=== PATIENT | female | born 1985 | race Two or more races ===

== ENCOUNTER 2020-07-10 10:42 | Outpatient (REF) | payer MEDICAID, SELFPAY ==
--- NOTE | ~2020-07-10 | CT_ITS ---
EXAMINATION: CT CHEST WITHOUT CONTRAST CLINICAL INFORMATION: Pulmonary nodule COMPARISON: Previous chest x-ray September 2017 TECHNIQUE: Multidetector volumetric CT imaging of the chest was done. Axial MIP volume rendering provided. Sagittal and coronal reformatted images were obtained. This CT examination was performed using dose optimization techniques as appropriate, variously including the following: *Automated exposure control *Adjustment of mA and/or kV according to patient size (this includes techniques or standardized protocols for targeted exams where dose is matched to indication/reason for exam; i.e. extremities or head) *Use of iterative reconstruction technique DLP: 151 mGy-cm FINDINGS: CORE MANAGER: LUNGS: There are multiple small bilateral pulmonary nodules. The largest pulmonary nodule measures 4 mm in the peripheral left lower lobe axial image 481 series 8. MEDIASTINUM: The visualized thyroid gland appears enlarged. The mediastinum is otherwise normal. PLEURA: There is no pleural effusion. No pleural mass or thickening. AXILLA: No lymphadenopathy. UPPER ABDOMEN: The gallbladder has been removed. OSSEOUS STRUCTURES: Unremarkable. CT/CT chest wo con IMPRESSION: Small pulmonary nodules, largest measuring 4 mm in the left lower lobe. According to the UPDATED 2017 Fleischner Society recommendations, the advised follow-up imaging for less than 6 mm nodule on: Low risk, no chest CT follow-up needed and high risk, optional chest CT follow-up in one year. Prominent thyroid gland.
== END 2020-07-10 10:43 | disposition home or self-care (01) ==
LOC: HO.CT 10:42
PROVIDERS: Visit Provider Internal Medicine
DX: R91.1 Solitary pulmonary nodule (principal); F17.200 Nicotine dependence, unspecified, uncomplicated
CPT/HCPCS: 71250

== ENCOUNTER 2020-07-15 12:45 | Outpatient (REF) | payer MEDICAID, SELFPAY ==
--- NOTE | ~2020-07-15 | MM_ITS ---
EXAMINATION: MM DIAGNOSTIC DIGITAL BREAST TOMOSYNTHESIS, BILATERAL US DIAGNOSTIC ULTRASOUND BREAST, RIGHT CLINICAL INFORMATION: Chronic intermittent pain and palpable fullness mid upper outer right breast with some axillary tenderness noted by patient. Age 35. Family history breast cancer paternal grandmother and aunt. The lifetime risk of breast cancer based on the Tyrer-Cuzick Model is 15%. COMPARISON: Mammography: 11/22/2017 (baseline), targeted right breast ultrasound 11/22/2017 TECHNIQUE: Digital breast tomosynthesis is performed in both the craniocaudal and mediolateral oblique views along with computer-aided detection (CAD). Synthesized 2D images are generated from the tomosynthesis. Ultrasound right breast is targeted to the areas of clinical concern upper outer quadrant and axilla. Patient is able to point to area of concern at time of imaging. Grayscale imaging and color Doppler are performed without and with harmonics. FINDINGS: There are scattered areas of fibroglandular density (ACR BI-RADS breast composition Category b). Breast tissue composition borders on heterogeneously dense. There is no interval mass or parenchymal asymmetry, asymmetric density, or architectural abnormality. No abnormal calcifications. The axilla and skin contours are unremarkable. Ultrasound right breast demonstrates no cystic or solid mass, architectural abnormality, or focal duct ectasia. No skin thickening or edema tracking in soft tissue plane. Additional imaging right axilla shows no lymphadenopathy. Results are discussed with the patient at time of visit. MM/MM tomosynthesis diagnostic BI IMPRESSION: 1. No mammographic evidence of malignancy or inflammatory changes. 2. Unremarkable targeted right breast ultrasound. ASSESSMENT: BI-RADS 1: Negative RECOMMENDATION: 1. Patient should be managed based on the clinical impression. If clinically indicated, further evaluation may be considered with surgical consult. Decision to proceed with biopsy should be based on clinical grounds and degree of clinical concern. 2. Otherwise, routine annual screening mammography, beginning age 40, or earlier as clinical risk factors warrant. This patient's information was entered into a reminder system with a target due date for their next mammogram.
== END 2020-07-15 12:46 | disposition home or self-care (01) ==
LOC: HO.MAMMO 12:45
PROVIDERS: Visit Provider Internal Medicine
DX: N63.31 Unspecified lump in axillary tail of the right breast (principal)
CPT/HCPCS: 76642; 77062; 77066

== ENCOUNTER 2021-04-05 09:46 | Outpatient (REF) | payer MEDICAID, SELFPAY ==
--- NOTE | ~2021-04-05 | US_ITS ---
EXAMINATION: US THYROID CLINICAL INFORMATION: Nontoxic goiter. COMPARISON: None TECHNIQUE: Linear transducer grayscale and color Doppler examination with attention to the region of the thyroid. FINDINGS: SIZE: Measurements of the thyroid lobes and nodules are given in sagittal, anteroposterior and transverse dimensions respectively. Right Thyroid Lobe: 5.9 x 2.0 x 2.5 cm, volume 17.0 mL. Parenchyma: The gland echotexture is heterogeneous. Thyroid vascularity is increased. Left Thyroid Lobe: 5.9 x 1.9 x 2.8 cm, volume 16.4 mL. Parenchyma: The gland echotexture is heterogeneous. Thyroid vascularity is increased. Isthmus: 0.4 cm in maximum AP dimension. There are multiple bilateral colloid cysts. These are nonmeasured. Estimated total number of solid nodules greater than or equal to 1 cm: 0. 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 Location: Right inferior. Size: 0.7 x 0.5 x 0.7 cm, volume 0.1 mL. Nodule characteristics: Composition: Solid (2). Echogenicity: Hypoechoic (2). Shape: Not taller than wide (0). Margins: Smooth (0). Echogenic Foci: None (0). ACR TI-RADS total points: 4 ACR TI-RADS category: 4 NODES: No lymphadenopathy is seen in the tissue surrounding the thyroid gland. US/US thyroid IMPRESSION: Enlarged slightly heterogeneous hypervascular thyroid gland. Solitary solid subcentimeter right thyroid nodule. Multiple bilateral colloid cysts. ACR TI-RADS RECOMMENDATION REFERENCE: Ultrasound-guided fine-needle aspiration, followup ultrasound, no further follow up. * TR1 (0 point) and TR 2 (2 points): No FNA or follow up * TR3 (3 points): FNA if more than or equal to 2.5 cm in maximum dimension, followup ultrasound in 1, 3 and 5 years if 1.5 to 2.4 cm in maximum dimension. * TR4 (4-6 points): FNA if more than or equal to 1.5 cm in maximum dimension, followup ultrasound in 1, 2, 3 and 5 years if 1 to 1.4 cm in maximum dimension. * TR5 (more than or equal to 7 points): FNA if more than or equal to 1 cm in maximum dimension, followup ultrasound every year for 5 years if 0.5 to 0.9 cm in maximum dimension. * TR3, TR4 or TR5 nodules that are below the size threshold for follow up receive no follow up.
== END 2021-04-05 09:47 | disposition home or self-care (01) ==
LOC: HO.US 09:46
PROVIDERS: PCP Internal Medicine; Visit Provider Internal Medicine
DX: E04.9 Nontoxic goiter, unspecified (principal); E05.90 Thyrotoxicosis, unspecified without thyrotoxic crisis or storm
CPT/HCPCS: 76536

== ENCOUNTER 2022-09-05 12:54 | Outpatient (AMB) | payer MEDICAID, SELFPAY ==
--- NOTE | 2022-09-05 12:56 | A.OFFVIS_ITS ---
Intake Vital Signs 09/05/22 12:58 Height 5 ft 5 in Weight 147 lb 7.828 oz BMI 24.5 BP 118/62 Blood Pressure Location Lt brachial Position Sitting Pulse 81 Pulse Source Pulse Oximeter Pulse Oximetry (%) 96 Oxygen Delivery Method Room Air Intake Visit Reasons: Hypothyroidism/Nodule Intake Note: New patient present today for Hypothyroidism/ Nodule. 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 Was initially diagnosed with thyroid nodule in 04/05/21] with thyroid US revealing 1. Location: Right inferior. ?? ? Size: 0.7 x 0.5 x 0.7 cm, volume 0.1 mL. ?? ? Nodule characteristics: ?? ? Composition: Solid (2).. At age 14 had abnl thyroid Currently c/o dysphagia or + hoarseness of voice. Denies sensation of swelling in the neck or difficulty breathing while lying flat. Denies any tenderness in the neck. Admits to palpitations, tremors, + weight loss 80 lbs in 6 mos ,+ frequent bowel movements. Denies any ocular complaints, blurred or double vision. Has hair loss, +dry skin,+ heat but not cold intolerance, weight gain, confusion. Denies any history of head or neck irradiation. Denies any family history of thyroid cancer. Hx of hypothyroidism in counsins Not Had biopsy of nodules in the past. Biotin : No LMP 11/2 wks ago, are nl. Thyroid US: Labs: [facility] Surgical History (Updated 09/05/22 @ 13:05 by Marilia Trejo CMA) Hx of cholecystectomy Hx of tubal ligation Family History (Updated 09/05/22 @ 13:06 by Marilia Trejo CMA) Paternal Aunt Stomach cancer Maternal Aunt Brain cancer Breast cancer Paternal Grandmother Breast cancer Social History Alcohol intake: current Alcohol intake frequency: holidays/special occasions only Patient Tobacco Use Status: Former Tobacco user Quit Date: August 2022 Physical Exam Vital Signs: Last Vital Signs Pulse 81 09/05/22 12:58 BP 118/62 09/05/22 12:58 Pulse Ox 96 09/05/22 12:58 Oxygen Delivery Method Room Air 09/05/22 12:58 BMI result Body Mass Index 24.5 HEENT reveals absence of lid lag , stare or proptosis or eyebrow loss. Thyroid gland measure 15 gms . No nodules or tenderness palpated. There is no cervical adenopathy palpated. Lungs CTA. Heart S1, S2 Reg R/R -M/R/G. Abdominal exam benign. Skin exam reveals absence of dryness or thyroid dermopathy or vitiligo. Nail exam reveals absence of thyroid acropachy or oncholysis. Neurologic exam reveals 2+ reflexes . Muscle Strength is 5/5 proximally. There are no tremors in upper extremities. Assessment & Plan Assessment & Plan (1) Thyroid nodule: Code(s): E04.1 - Nontoxic single thyroid nodule Plan: This is a 37-year-old female with a history of subcentimeter thyroid nodule with mildly suppressed TSH level. Plan is to recheck TSH and free T4. Assuming above is normal, there is no need for FNA of the nodule and patient can follow up with primary care provider possible repeat thyroid ultrasound in 1-2 years time by patient's primary care provider. Should the nodule increase in size or change characteristics, patient referred back to [place] Orders: Orders Free T4 (Free Thyroxine) Today E04.1 - Nontoxic single thyroid nodule Thyroid Stimulating Hormone Today E04.1 - Nontoxic single thyroid nodule Coding Level of Care Code New Pt Level 4 (36107) Diagnoses Thyroid nodule E04.1
[2022-09-05 12:58] VITALS: BP 118/62; PULSE 81; O2SAT 96; BMI 24.5
== END 2022-09-06 16:52 | disposition home or self-care (01) ==
PROVIDERS: PCP Internal Medicine; Visit Provider Internal Medicine Endocrinology, Diabetes & Metabolism
DX: E04.1 Nontoxic single thyroid nodule (principal)
CPT/HCPCS: 99204

== ENCOUNTER → 2022-09-05 12:54 | Outpatient (BNVA) | payer MEDICAID, SELFPAY | PROVIDERS: Visit Provider Internal Medicine Endocrinology, Diabetes & Metabolism | DX: E04.1 Nontoxic single thyroid nodule (principal) | CPT/HCPCS: 99202 ==

== ENCOUNTER 2022-12-28 17:42 | Outpatient (REF) | payer MEDICAID, SELFPAY ==
[2022-12-29 12:54] LABS: BV Int Neg Control Negative (Negative); BV Int Pos Control Positive (Positive)
[2022-12-30 15:59] LABS: C. trachomatis RNA TMA NOT DETECTED (NOT DETECTED); N. gonorrhoeae RNA TMA NOT DETECTED (NOT DETECTED)
== END 2022-12-28 17:43 | disposition home or self-care (01) ==
LOC: HO.HHCLNP 17:42
PROVIDERS: Visit Provider Emergency Medicine
DX: R10.9 Unspecified abdominal pain (principal)
CPT/HCPCS: 36415; 87086; 87147; 87480; 87491; 87510; 87591; 87660

== ENCOUNTER 2023-05-08 17:47 | Outpatient (REF) | payer MEDICAID, SELFPAY ==
[2023-05-09 20:03] LABS: C. trachomatis RNA TMA NOT DETECTED (NOT DETECTED); Candida glabrata RNA NOT DETECTED (NOT DETECTED); Candida species RNA NOT DETECTED (NOT DETECTED); N. gonorrhoeae RNA TMA NOT DETECTED (NOT DETECTED); Trichomonas vaginalis RNA NOT DETECTED (NOT DETECTED)
== END 2023-05-08 17:48 | disposition home or self-care (01) ==
LOC: HO.HHCLNP 17:47
PROVIDERS: Visit Provider Nurse Practitioner Family
DX: R10.2 Pelvic and perineal pain (principal)
CPT/HCPCS: 36415; 81513; 87086; 87481; 87491; 87591; 87661

== ENCOUNTER 2023-07-10 10:28 | Outpatient (REF) | payer MEDICAID, SELFPAY ==
[2023-07-10 11:30] LABS: MANUAL DIFF FLAG NO
[2023-07-10 11:41] LABS: Basophils Percent Auto 0.3 % (0-2); Eosinophils Absolute Auto 0.1 X10*3/uL (0.0-0.4); Eosinophils Percent Auto 1.3 % (0-4); Hematocrit 45.4 % (37.0-47.0); Hemoglobin 14.9 g/dl (12.0-16.0); Imm Gran Abs Auto 0.01 X10*3/uL (0.00-0.03); Imm Gran Pct Auto 0.1 % (0.0-0.4); Lymphocytes Absolute Auto 2.5 X10*3/uL (1.2-4.9); Lymphocytes Percent Auto 37.1 % (20-40); Mean Corpuscular HGB Conc 32.8 g/dl (31.0-35.0); Mean Corpuscular Volume 88.5 fL (80.0-98.0); Mean Platelet Volume 11.1 fL (9.4-12.3); Monocytes Absolute Auto 0.5 X10*3/uL (0.1-1.2); Monocytes Percent Auto 7.7 % (2-11); Neutrophils Absolute Auto 3.6 x10*3/uL (2.0-8.3); Neutrophils Percent Auto 53.5 % (45-73); Platelet Count 192 X10*3/uL (160-400); Red Blood Count 5.13 X10*6/uL (4.20-5.50); Red Cell Distribution Width 12.8 % (11.0-16.0); White Blood Count 6.7 X10*3/uL (4.8-10.8)
[2023-07-10 17:11] LABS: Alanine Aminotransferase 23 U/L (0-31); Albumin Level 4.1 g/dL (3.5-5.0); Alkaline Phosphatase 69 U/L (39-117); Anion Gap 15 (12-20); Aspartate Amino Transferase 21 U/L (5-31); Bilirubin Total 1.1 mg/dL (0.0-1.0); Blood Urea Nitrogen 19 mg/dL (9-16); Carbon Dioxide 23 mmol/L (22-29); Chloride 105 mmol/L (96-108); Estimated Glomerular Filt Rate > 60; Glucose Random 108 mg/dL (60-115); Magnesium 2.4 mg/dL (1.6-2.6); Potassium 4.3 mmol/L (3.3-5.1); Sodium 139 mmol/L (135-145); Total Protein 7.7 g/dL (6.5-8.0)
[2023-07-10 17:28] LABS: TSH reflex Free T4 1.36 uIU/mL (0.32-4.0)
== END 2023-07-10 10:29 | disposition home or self-care (01) ==
LOC: HO.HHCL 10:28
PROVIDERS: Visit Provider Internal Medicine
DX: R20.2 Paresthesia of skin (principal); R53.1 Weakness; R51.9 Headache, unspecified
CPT/HCPCS: 36415; 80053; 83735; 84443; 85025